=== PATIENT | female | born 1960 | race Caucasian/White ===

== ENCOUNTER 2025-07-29 09:41 | Outpatient (CLI) | payer MEDICARE | END 2025-07-29 09:42 | disposition home or self-care (01) | LOC: SCSMRI 09:41 | PROVIDERS: ATTEND Student in an Organized Health Care Education/Training Program | DX: M47.26 Other spondylosis with radiculopathy, lumbar region (principal); M47.27 Other spondylosis with radiculopathy, lumbosacral region; M47.814 Spondylosis without myelopathy or radiculopathy, thoracic region; M43.06 Spondylolysis, lumbar region; M48.04 Spinal stenosis, thoracic region; M48.061 Spinal stenosis, lumbar region without neurogenic claudication; M48.07 Spinal stenosis, lumbosacral region; M41.9 Scoliosis, unspecified | CPT/HCPCS: 72081; 72100; 72148 ==